=== PATIENT | male | born 1965 | race Caucasian/White ===

== ENCOUNTER 2019-04-04 18:55 | Emergency (ER) | payer SELFPAY ==
[2019-04-04] MEDS: KETOROLAC 30 MG INJ IM (20:41)
== END 2019-04-04 20:53 | disposition home or self-care (01) ==
LOC: FTE 18:55
DX: M25.561 Pain in right knee (principal); F17.210 Nicotine dependence, cigarettes, uncomplicated
CPT/HCPCS: 96372; 99284-25